=== PATIENT | female | born 1965 | race African-American/Black ===

== ENCOUNTER 2020-03-15 05:06 | Day surgery (SDC) | payer OTHER ==
[2020-03-14 10:51] VITALS: BMI 23.6
[2020-03-15 08:56] VITALS: TEMP 97.7
[2020-03-15 10:26] VITALS: BP 132/91; PULSE 62
== END 2020-03-15 10:30 | disposition home or self-care (01) ==
LOC: JASU-ENDO 05:06
PROVIDERS: ATTEND Internal Medicine Gastroenterology
PROC: 0DJD8ZZ Inspection of Lower Intestinal Tract, Via Natural or Artificial Opening Endoscopic (ICD-10-PCS; principal; 2020-03-15 08:47)
DX: Z12.11 Encounter for screening for malignant neoplasm of colon (principal)

== ENCOUNTER 2020-11-18 15:09 | Emergency (ER) | payer OTHER ==
[2020-11-18 15:28] VITALS: BP 111/75; PULSE 74; TEMP 98.6; BMI 24.3
[2020-11-18] MEDS ORDERED: LIDOCAINE 5% TOPICAL PATCH TP ONE (16:09)
[2020-11-18] MEDS ORDERED: KETOROLAC TROMETHAMINE 60 MG/2 ML VIAL IM ONE (16:09)
[2020-11-18] MEDS ORDERED: METHOCARBAMOL 500 MG TABLET PO ONE (16:10)
[2020-11-18] MEDS ORDERED: LIDOCAINE 5% TOPICAL PATCH ONE (16:20)
[2020-11-18] MEDS ORDERED: KETOROLAC TROMETHAMINE 30 MG/1 ML VIAL ONE (16:21)
[2020-11-18] MEDS ORDERED: METHOCARBAMOL 500 MG TABLET ONE (16:22)
[2020-11-18] MEDS ORDERED: LIDOCAINE PATCH REMOVAL MC SCH (22:00)
== END 2020-11-18 18:31 | disposition home or self-care (01) ==
LOC: JERFT 15:09
PROC: 3E0233Z Introduction of Anti-inflammatory into Muscle, Percutaneous Approach (ICD-10-PCS; principal; 2020-11-18)
DX: M54.5 Low back pain (principal)
CPT/HCPCS: 72100-TC-FY; 74019-TC-FY; 96372; 99284-25

== ENCOUNTER 2021-05-16 21:57 | Emergency (ER) | payer OTHER ==
[2021-05-16 22:33] VITALS: BP 146/99; PULSE 86; TEMP 98.3; BMI 24.0
[2021-05-16] MEDS ORDERED: ACETAMINOPHEN 500 MG TABLET (FP) PO ONE (23:25)
[2021-05-16] MEDS ORDERED: METOCLOPRAMIDE HCL 10 MG TABLET (FP) PO ONE ×2 (23:25→23:55)
[2021-05-16] MEDS ORDERED: IBUPROFEN 400 MG TABLET (FP) PO PRN (23:26)
[2021-05-16] MEDS ORDERED: diphenhydrAMINE HCL 25 MG CAPSULE (FP) PO ONE ×2 (23:26→23:56)
[2021-05-16] MEDS ORDERED: ACETAMINOPHEN 325 MG TABLET (FP) ONE (23:41)
[2021-05-16] MEDS ORDERED: IBUPROFEN 400 MG TABLET (FP) PO ONE (23:42)
[2021-05-17 00:09] LABS: BASO % 0.9 % (0-2.0); EOS % 2.2 % (0-4.5); HEMATOCRIT 39.6 % (32.4-45.2); HEMOGLOBIN 13.2 GM/dL (10.7-15.3); LYMPH % 28.3 % (8-40); MCH 29.5 pg (25.7-33.7); MCHC 33.3 g/dl (32.0-36.0); MEAN CELL VOLUME 88.5 fl (80-96); MEAN PLT VOLUME 9.6 fl (7.5-11.1); MONO % 11.2 % (3.8-10.2); NEUT % 57.4 % (42.8-82.8); PLATELET COUNT 153 10^3/uL (134-434); RBC 4.47 M/mm3 (3.60-5.2); RDW 13.4 % (11.6-15.6)
[2021-05-17 00:31] LABS: CALCIUM 9.6 mg/dL (8.5-10.1)
[2021-05-17 00:32] LABS: BLOOD UREA NITROGEN 17.8 mg/dL (7-18)
[2021-05-17 00:35] LABS: CREATININE 0.7 mg/dL (0.55-1.3)
[2021-05-17] MEDS ORDERED: diphenhydrAMINE HCL 25 MG CAPSULE (FP) PO ONE (01:23)
[2021-05-17] MEDS ORDERED: METOCLOPRAMIDE HCL 10 MG TABLET (FP) PO ONE (01:23)
== END 2021-05-17 02:35 | disposition home or self-care (01) ==
LOC: JER 21:57
DX: R51.9 Headache, unspecified (principal)
CPT/HCPCS: 36415; 70450-TC; 80048; 84443; 85025; 85651; 99285-25